=== PATIENT | female | born 1995 | race Two or more races ===

== ENCOUNTER → 2019-09-24 17:06 | Outpatient (BNVA) | payer OTHER, SELFPAY | PROVIDERS: Family Provider Family Medicine; PCP Family Medicine; Visit Provider Nurse Practitioner | DX: N39.0 Urinary tract infection, site not specified (principal); R39.9 Unspecified symptoms and signs involving the genitourinary system; R10.9 Unspecified abdominal pain | CPT/HCPCS: 81003; 81025 ==

== ENCOUNTER 2019-10-04 17:37 | Emergency (ER) | payer OTHER, SELFPAY ==
[2019-10-04 17:41] VITALS: BP 147/88; PULSE 107; RESP 18; TEMP 36.4; O2SAT 100; BMI 38.2
[2019-10-04 18:15] VITALS: PULSE 104; RESP 18; O2SAT 100
[2019-10-04 18:29] LABS: Basophils % 0.2 %; Eosinophils # 0.1 10^3/uL (0.0-0.8); Eosinophils % 1.1 %; Hematocrit 42.2 % (37.0-47.0); Hemoglobin 13.5 g/dL (11.5-15.3); Lymphocytes # 2.2 10^3/uL (0.8-4.8); Lymphocytes % 24.7 %; Mean Corpuscular Hemoglobin 27.6 pg (28.0-34.0); Mean Corpuscular Volume 86.1 fL (81-99); Mean Platelet Volume 11.3 fL (7.4-10.4); Monocytes # 0.6 10^3/uL (0.2-0.9); Neutrophils % 66.7 %; Nucleated Red Blood Cells % 0 %; Platelet Count 276 10^3/cmm (130-400)
--- NOTE | 2019-10-04 18:29 | XRR_ITS ---
PROCEDURE INFORMATION: Exam: XR Left Ankle Exam date and time: 10/04/2019 7:13 PM Age: 24 years old Clinical indication: Injury or trauma; Fall; Initial encounter; Sprain or strain; Ankle; Left TECHNIQUE: Imaging protocol: XR Left ankle. Views: 3 or more views. COMPARISON: No relevant prior studies available. FINDINGS: Bones/joints: Normal. Soft tissues: Lateral soft tissue swelling. XR/XR ankle LT min 3V* [id number] IMPRESSION: No fracture or dislocation.
--- NOTE | 2019-10-04 18:29 | ECG_ITS ---
Measurements Intervals [place] Rate: 90 P: 32 WV: 153 QRS: 11 QRSD: 99 T: -9 QT: 344 QTc: 423 SINUS RHYTHM WITH MARKED SINUS ARRHYTHMIA POSSIBLE LEFT VENTRICULAR HYPERTROPHY [VOLTAGE CRITERIA PLUS LAE OR QRS WIDENING] No previous ECG available for comparison Electronically Signed On 10-04-2019 18:47:15 CDT by Aubrie Uriarte M.D. [email or web address]
--- NOTE | 2019-10-04 18:31 | USR_ITS ---
PROCEDURE INFORMATION: Exam: US First Trimester, Transabdominal and US , Transvaginal Exam date and time: 10/04/2019 8:05 PM Age: 24 years old Clinical indication: Injury or trauma; Fall; Initial encounter; Abrasion; Lower; Injury date: 10-04-2019 both knees and ankle; Injury details: PT passed out and fell down stairs into gravel; ; Prior surgery; Surgery date: 6+ months; Surgery type: Ectopic resolved and removal of RT tube; Patient HX: History of ectopic; Additional info: Syncope, HX of ectopic TECHNIQUE: Imaging protocol: Real-time transabdominal obstetrical ultrasound of the maternal pelvis and a first trimester , less than 14 weeks 0 days, with image documentation. Transvaginal imaging was used for better evaluation of the fetus and adnexa. COMPARISON: US pelvic with transvaginal 07/08/2018 3:54 PM FINDINGS: GESTATION: Gestation: 7 mm oval cyst in the fundal endometrium is most likely an early gestational sac. No pole or heart tones visualized. No yolk sac visualized. MATERNAL: Uterus: The uterus measures 9.1 x 4.7 x 5.5 cm. Cervix: Unremarkable. Right adnexa: The right ovary measures 2.5 x 2.2 x 1.9 cm with normal blood flow. Left adnexa: The left ovary measures 2.7 x 2.1 x 3.3 cm with normal blood flow and a 1.7 cm follicle. Intraperitoneal: No free fluid. US/US OB <=14 wk fetus w transvag IMPRESSION: 1. 7 mm oval cystic structure in the uterine fundus is most likely an early gestation. Viability follow-up ultrasound in 14 or greater days is recommended.
[2019-10-04 18:34] VITALS: PULSE 96; RESP 16
--- NOTE | 2019-10-04 18:35 | ED_ITS ---
HPI - Syncope General: Chief Complaint: Syncope Stated Complaint: syncope, fall Time Seen by Provider: 10/04/19 18:20 History of Present Illness: HPI narrative: She states she has had episodes of syncope throughout this she is sure that with Dr. Bolton and he says is related to her she said she had an episode today where she fell down the stairs and hurt her left ankle. All test that she has had done she said have been negative. He said she cannot predict when this is going to happen it just can happen MD complaint: loss of consciousness Onset (ago): hour(s) Prodromal symptoms: none Witnessed: No Context: other (Going downstairs) Injuries sustained associated with event: LLE (Ankle) Associated symptoms: Reports no associated symptoms; Deny abdominal pain, chest pain, fever(s), headache(s) or nausea History: previous syncopal episode (Multiple) Review of Systems Const: Denies: fever, chills or body aches Eyes: Denies: change in vision or blurry vision ENMT: Denies: throat pain or nasal congestion Card: Reports: syncope (Multiple times her last 2 to 3 months); Denies: chest pain or shortness of breath on exertion Resp: Denies: shortness of breath, productive cough or non-productive cough GI: Denies: abdominal pain, nausea or vomiting Musc: Reports: extremity pain and joint pain (Left ankle) Skin/Breast: Denies: rash Neuro: Reports: dizziness; Denies: headache Psych: Denies: anxiety or depression Anand/Lymph: Denies: easy bruising PFSH ED PFSH: Surgical History (Updated 08/24/19 @ 02:18 by Hayley Horvath RN) History of salpingectomy Hx of left knee surgery Hx of wisdom tooth extraction Family History (Updated 08/02/19 @ 11:21 by Destinee Kaiser MA) Grandfather Cancer Grandmother Cancer Hypercholesteremia Mother Diabetes Hypertension Hypercholesteremia Denies family history of CAD (coronary artery disease) Clotting disorder Dementia Hyperlipidemia Psychiatric illness Chronic kidney disease (CKD) Suicide Anesthesia complication Bleeding disorder Family history of premature coronary artery disease Lung disease Stroke Social History Smoking and tobacco status: never smoked Second hand smoke exposure: No Smoking risk assessment/counseling performed?: No Alcohol intake: never Desire information about alcohol rehabilitation?: No Counseling given: No Desire information about substance/drug rehabilitation?: No Counseling given: No Female Reproductive History: Date of last menstrual period: 09/03/19 Physical Exam Const: COMMON NORMALS: no apparent distress, average body habitus and oriented x3 HENMT: COMMON NORMALS: normocephalic HEAD & SCALP: normal to inspection and normocephalic FACE & SINUS: normal facial exam Eye: COMMON NORMALS: conjunctivae normal GENERAL EYE: normal appearance of both eyes CONJUNCTIVA: Yes conjunctivae normal Neck/C-Spine: COMMON NORMALS: no JVD Chest: COMMONS NORMALS: inspection of chest normal Resp: COMMON NORMALS: normal respiratory effort and clear to auscultation bilaterally AUSCULTATION: clear to auscultation bilaterally Cardio: COMMON NORMALS: no JVD, regular rate and regular rhythm RATE: regular rate RHYTHM: regular rhythm GI: COMMON NORMALS: normal to inspection, nondistended, normoactive bowel sounds Extremity: COMMON NORMALS: normal to inspection and full ROM LEFT LOWER EXTREMITY: Yes ankle joint (Tender with mild swelling no bruising has good range of motion) Neuro: COMMON NORMALS: oriented x3 Course Vital Signs: Vital signs: Vital Signs Temperature 97.6 F 10/04/19 17:41 Pulse Rate 90 10/04/19 18:51 Respiratory Rate 16 10/04/19 18:34 Blood Pressure 120/87 10/04/19 18:51 Pulse Oximetry 100 10/04/19 18:15 MDM - Syncope MDM Narrative: Medical decision making narrative: Esteban case with Dr. Peres Lab Data: Labs: Lab Results 10/04/19 10/04/19 10/04/19 Range/Units 18:04 18:04 18:04 WBC 9.0 (4.0-10.0) 10^3/ uL RBC 4.90 (4.1-5.3) 10^6/u L Hgb 13.5 (11.5-15.3) g/dL Hct 42.2 (37.0-47.0) % MCV 86.1 (81-99) fL MCH 27.6 L (28.0-34.0) pg MCHC 32.0 (30.0-36.0) g/dL RDW 13.0 (12.1-15.1) % Plt Count 276 (130-400) 10^3/c mm MPV 11.3 H (7.4-10.4) fL Neut % (Auto) 66.7 % Lymph % (Auto) 24.7 % [place] % (Auto) 7.0 % Eos % (Auto) 1.1 % Baso % (Auto) 0.2 % Neut # (Auto) 6.0 (1.8-7.7) 10^3/u L Lymph # (Auto) 2.2 (0.8-4.8) 10^3/u L [place] # (Auto) 0.6 (0.2-0.9) 10^3/u L Eos # (Auto) 0.1 (0.0-0.8) 10^3/u L Baso # (Auto) 0.0 (0.0-0.1) 10^3/u L Nucleated RBC % (a uto) 0 % Nucleated RBCs # 0.0 /100WBC Sodium 138 (136-145) mmol/L Potassium 3.7 (3.5-5.1) mmol/L Chloride 101 (98-107) mmol/L Carbon Dioxide 25 (22-29) mmol/L Anion Gap 15.7 (5-19) BUN 10 (6-20) mg/dL Creatinine 0.8 (0.5-0.9) mg/dL GFR Calculation 87.4 L (90-130) mL/min Glucose 99 (65-115) mg/dL Calculated Osmolal ity 282 L (285-295) mOsm/k g Calcium 9.7 (8.5-10.5) mg/dL Total Bilirubin 0.6 (0.15-1.2) mg/dL AST 22 (0-32) U/L ALT 30 (0-33) U/L Alkaline Phosphata se 59 (35-105) IU/L Total Protein 7.5 (6.6-8.7) g/dL Albumin 4.4 (3.5-5.2) g/dL Globulin 3.1 (1.3-4.6) g/dL Ser , Narciso i-Qnt 2542.00 mIU/mL Urine Color (Yellow) Urine Appearance (CLEAR) Urine pH (5-7) Ur Specific Gravit y (1.005-1.030) Urine Protein (Negative) Urine Glucose (UA) (Normal) Urine Ketones (Negative) Urine Blood (Negative) Urine Nitrate (Negative) Urine Bilirubin (NEGATIVE) Urine Urobilinogen (Negative) mg/dL Ur Leukocyte Scarlett ase (Negative) Urine RBC (0-2) /hpf Urine WBC (0-5) /hpf Ur Squamous Epith Cells (0-5) Urine Bacteria (NONE) Urine Mucus 10/04/19 Range/Units 18:26 WBC (4.0-10.0) 10^3/ uL RBC (4.1-5.3) 10^6/u L Hgb (11.5-15.3) g/dL Hct (37.0-47.0) % MCV (81-99) fL MCH (28.0-34.0) pg MCHC (30.0-36.0) g/dL RDW (12.1-15.1) % Plt Count (130-400) 10^3/c mm MPV (7.4-10.4) fL Neut % (Auto) % Lymph % (Auto) % [place] % (Auto) % Eos % (Auto) % Baso % (Auto) % Neut # (Auto) (1.8-7.7) 10^3/u L Lymph # (Auto) (0.8-4.8) 10^3/u L [place] # (Auto) (0.2-0.9) 10^3/u L Eos # (Auto) (0.0-0.8) 10^3/u L Baso # (Auto) (0.0-0.1) 10^3/u L Nucleated RBC % (a uto) % Nucleated RBCs # /100WBC Sodium (136-145) mmol/L Potassium (3.5-5.1) mmol/L Chloride (98-107) mmol/L Carbon Dioxide (22-29) mmol/L Anion Gap (5-19) BUN (6-20) mg/dL Creatinine (0.5-0.9) mg/dL GFR Calculation (90-130) mL/min Glucose (65-115) mg/dL Calculated Osmolal ity (285-295) mOsm/k g Calcium (8.5-10.5) mg/dL Total Bilirubin (0.15-1.2) mg/dL AST (0-32) U/L ALT (0-33) U/L Alkaline Phosphata se (35-105) IU/L Total Protein (6.6-8.7) g/dL Albumin (3.5-5.2) g/dL Globulin (1.3-4.6) g/dL Ser , Narciso i-Qnt mIU/mL Urine Color Yellow (Yellow) Urine Appearance Sl hazy (CLEAR) Urine pH 5 (5-7) Ur Specific Gravit y 1.020 (1.005-1.030) Urine Protein Neg (Negative) Urine Glucose (UA) Norm (Normal) Urine Ketones Negative (Negative) Urine Blood Neg (Negative) Urine Nitrate Negative (Negative) Urine Bilirubin Neg (NEGATIVE) Urine Urobilinogen Norm (Negative) mg/dL Ur Leukocyte Scarlett ase Negative (Negative) Urine RBC 0-4 H (0-2) /hpf Urine WBC 0-4 H (0-5) /hpf Ur Squamous Epith Cells 5-10 H (0-5) Urine Bacteria 1+ H (NONE) Urine Mucus 1+ EKG Data^: EKG 1: EKG interpretation date: 10/04/19 Interpretation: Normal sinus rhythm with left ventricular hypertrophy Discharge Plan Discharge Patient Disposition: Home, Self-Care Clinical Impression: Atypical syncope Sprain of ankle Qualifiers: Encounter type: initial encounter Involved ligament of ankle: posterior talo fibular ligament Laterality: left Qualified Code(s): S93.492A - Sprain of other ligament of left ankle, initial encounter Condition: Stable Prescriptions: No Action 28-800 mg-mcg Tablet 1 tab PO DAILY RF: 0 Discharge Orders: Discharge Order (Routine); Ordered 10/04/19 Ordered By: Isak Mccormick Referrals: Gabriella Friend DO [Primary Care Provider] - Discharge Diet: Advance as tolerated Discharge Activity: Increase activity as tolerated Patient Instructions: Dehydration (ED), Ankle Sprain (ED) Activity Restrictions/Additional Instructions: Follow-up with medical provider as directed. Return to the ER or your medical provider if condition worsens. Please read and understand discharge instructions. If any questions ask please. Follow with up with Dr. Bolton as scheduled off work next 2 days Stand Alone Forms: Work/School Release Coding Level of Care Code ED Welcome [place] Agent for Chg Fwd Exam Comprehensive
[2019-10-04 18:40] LABS: Alanine Aminotransferase 30 U/L (0-33); Albumin Level 4.4 g/dL (3.5-5.2); Alkaline Phosphatase 59 IU/L (35-105); Anion Gap 15.7 (5-19); Aspartate Amino Transferase 22 U/L (0-32); Blood Urea Nitrogen 10 mg/dL (6-20); Calcium 9.7 mg/dL (8.5-10.5); Carbon Dioxide 25 mmol/L (22-29); Chloride 101 mmol/L (98-107); Globulin 3.1 g/dL (1.3-4.6); Glomerular Filtration Rate 87.4 mL/min (90-130); Glucose 99 mg/dL (65-115); Osmolality Calculated 282 mOsm/kg (285-295); Potassium 3.7 mmol/L (3.5-5.1); Sodium 138 mmol/L (136-145); Total Bilirubin 0.6 mg/dL (0.15-1.2); Total Protein 7.5 g/dL (6.6-8.7)
[2019-10-04 18:51] VITALS: BP 120/87; BP 126/107; BP 145/90; PULSE 103; PULSE 110; PULSE 90
[2019-10-04] MEDS: sodium chloride 0.9% 1,000 ML 999 ML IV (18:55)
[2019-10-04] MEDS: ondansetron 2 mg/ML SDV 2 mL 4 MG IVP (19:46)
[2019-10-04 19:58] LABS: Add Urine Microscopic? YES; Bacteria Urine 1+; Bilirubin Urine Neg (NEGATIVE); Blood Urine Neg (Negative); Glucose Urine UA Norm (Normal); Ketones Urine Negative (Negative); Leukocyte Esterase Urine Negative (Negative); Mucus Urine 1+; Nitrate Urine Negative (Negative); Protein Urine Neg (Negative); RBC Urine 0-4 /hpf (0-2); Urine Appearance SL Hazy (CLEAR); Urine Color Yellow (Yellow); Urobilinogen Urine Norm (Negative); WBC Urine 0-4 /hpf (0-5); pH Urine 5 (5-7)
== END 2019-10-04 20:29 | disposition home or self-care (01) ==
PROVIDERS: Family Medicine; Emergency Provider Nurse Practitioner Family; Family Provider Family Medicine; PCP Family Medicine
DX: O9A.211 Injury, poisoning and certain other consequences of external causes complicating pregnancy, first trimester (principal); S93.409A Sprain of unspecified ligament of unspecified ankle, initial encounter; O26.891 Other specified pregnancy related conditions, first trimester; R55 Syncope and collapse; W10.9XXA Fall (on) (from) unspecified stairs and steps, initial encounter
CPT/HCPCS: 12345; 73610; 76801; 76817; 80053; 81001; 81025; 84702; 85025; 93005; 96361; 96374; 96375; 99283; 99284; J2405; J7030

== ENCOUNTER → 2019-10-31 13:20 | Outpatient (BNVA) | payer OTHER, SELFPAY | PROVIDERS: Family Provider Family Medicine; PCP Family Medicine; Visit Provider Nurse Practitioner Women's Health | DX: O13.1 Gestational [pregnancy-induced] hypertension without significant proteinuria, first trimester (principal); O34.81 Maternal care for other abnormalities of pelvic organs, first trimester; N83.11 Corpus luteum cyst of right ovary; O99.211 Obesity complicating pregnancy, first trimester; Z3A.08 8 weeks gestation of pregnancy | CPT/HCPCS: 76801 ==

== ENCOUNTER → 2019-11-14 11:12 | Outpatient (BNVA) | payer OTHER, SELFPAY | PROVIDERS: Family Provider Family Medicine; PCP Family Medicine; Visit Provider Obstetrics & Gynecology | DX: Z34.90 Encounter for supervision of normal pregnancy, unspecified, unspecified trimester (principal); O09.899 Supervision of other high risk pregnancies, unspecified trimester; O21.9 Vomiting of pregnancy, unspecified | CPT/HCPCS: 80053; 80307; 82950; 84315; 85027; 86592; 86762; 86803; 86850; 86900; 87806 ==

== ENCOUNTER → 2019-11-19 12:06 | Outpatient (BNVA) | payer OTHER, MEDICAID, SELFPAY | PROVIDERS: Family Provider Family Medicine; PCP Family Medicine; Visit Provider Obstetrics & Gynecology | DX: O09.891 Supervision of other high risk pregnancies, first trimester | CPT/HCPCS: 80053; 80307; 82950; 85027; 86592; 86762; 86803; 86850; 86900; 87340; 87806 ==

== ENCOUNTER → 2019-11-28 12:52 | Outpatient (BNVA) | payer OTHER, SELFPAY | PROVIDERS: Family Provider Family Medicine; PCP Family Medicine; Visit Provider Obstetrics & Gynecology | DX: Z34.90 Encounter for supervision of normal pregnancy, unspecified, unspecified trimester (principal) | CPT/HCPCS: 84315; 87491; 87591 ==

== ENCOUNTER 2020-01-03 20:55 | Emergency (ER) | payer OTHER, MEDICAID, SELFPAY ==
[2020-01-03 21:07] VITALS: BP 129/84; PULSE 112; RESP 20; TEMP 36.6; O2SAT 99; BMI 42.3
[2020-01-03 21:47] LABS: Basophils % 0.2 %; Eosinophils % 0.2 %; Hematocrit 42.1 % (37.0-47.0); Hemoglobin 13.5 g/dL (11.5-15.3); Lymphocytes # 0.8 10^3/uL (0.8-4.8); Lymphocytes % 6.2 %; Mean Corpuscular HGB Conc 32.1 g/dL (30.0-36.0); Mean Corpuscular Volume 87.3 fL (81-99); Mean Platelet Volume 11.7 fL (7.4-10.4); Monocytes # 0.5 10^3/uL (0.2-0.9); Monocytes % 3.7 %; Neutrophils # 10.9 10^3/uL (1.8-7.7); Neutrophils % 89.5 %; Nucleated Red Blood Cells % 0 %; Platelet Count 219 10^3/cmm (130-400); Red Blood Count 4.82 10^6/uL (4.1-5.3); Red Cell Distribution Width 14.5 % (12.1-15.1); White Blood Count 12.2 10^3/uL (4.0-10.0)
[2020-01-03 22:06] LABS: Alanine Aminotransferase 84 U/L (0-33); Albumin Level 3.8 g/dL (3.5-5.2); Alkaline Phosphatase 61 IU/L (35-105); Aspartate Amino Transferase 59 U/L (0-32); Blood Urea Nitrogen 8 mg/dL (6-20); Calcium 9.1 mg/dL (8.5-10.5); Carbon Dioxide 22 mmol/L (22-29); Chloride 99 mmol/L (98-107); Creatinine Clr Calc Pharmacy 169.2605; Globulin 3.5 g/dL (1.3-4.6); Glomerular Filtration Rate 121.8 mL/min (90-130); Glucose 97 mg/dL (65-115); Osmolality Calculated 276 mOsm/kg (285-295); Sodium 135 mmol/L (136-145); Total Bilirubin 1.1 mg/dL (0.15-1.2); Total Protein 7.3 g/dL (6.6-8.7)
[2020-01-04 00:52] VITALS: BP 141/91; PULSE 108; RESP 18; TEMP 36.7; O2SAT 98
[2020-01-04 01:22] LABS: Add Urine Microscopic? YES; Bacteria Urine 1+; Bilirubin Urine 1+ (NEGATIVE); Blood Urine Neg (Negative); Glucose Urine UA Norm (Normal); Ketones Urine 2+ (Negative); Leukocyte Esterase Urine Negative (Negative); Mucus Urine 1+; Nitrate Urine Negative (Negative); Protein Urine Neg (Negative); RBC Urine 0-4 /hpf (0-2); Urine Appearance Cloudy (CLEAR); Urine Color Yellow (Yellow); Urobilinogen Urine Norm (Negative); WBC Urine 0-4 /hpf (0-5); pH Urine 5 (5-7)
--- NOTE | 2020-01-04 01:43 | W.ED.NAVMDI ---
HPI - Nausea/Vomiting/Diarrhea General: Chief complaint: Nausea/Vomiting/Diarrhea Stated complaint: DIARRHEA/ 17 WEEKS Time Seen by Provider: 01/04/20 00:40 Source: patient Mode of arrival: ambulatory Limitations: no limitations History of Present Illness: HPI Narrative: Patient is a nice 24-year-old female who presents to ED today with a complaint of nausea, vomiting, and abdominal pain beginning around 6 AM this morning. She does tell me she ate [employer] last night for dinner. She has had approximately 3-4 episodes of nonbloody vomit and reports approximately 15 watery nonbloody diarrhea stools. She complains of some mild upper abdominal cramping. She has not been running fevers. Patient is currently 17 weeks . They just had an ultrasound yesterday which was normal. Patient is continuing to feel movement. She has no lower abdominal pain/cramping, vaginal bleeding, vaginal discharge. MD elicited complaint: nausea, vomiting, diarrhea and abdominal pain Onset (ago): hour(s) Description of vomiting: watery Description of diarrhea: watery Associated nausea: Yes Associated abdominal pain: Yes Location of pain: Epigastric, LUQ and RUQ Exacerbating factors: eating Relieving factors: other (promethazine) Associated symtoms: Reports nausea; Denies chest pain, dysuria or headache(s) Review of Systems Const: Denies: fever(s), chills or body aches Card: Denies: chest pain Resp: Denies: dyspnea GI: Reports: abdominal pain, nausea, vomiting and diarrhea; Denies: pain on defecation, hematochezia, melena or white/light colored stool : Denies: flank pain, difficulty voiding, dysuria, urinary frequency, urinary urgency, genital lesions, genital pruritis, vaginal bleeding, vaginal discharge or pelvic pain Musc: Denies: neck pain or back pain Skin/Breast: Denies: rash Neuro: Denies: headache(s), numbness in extremities, weakness in extremities or sensory changes [facility] ED PFSH: Medical History (Updated 01/04/20 @ 02:48 by SAÚL Rogers) Ectopic (~10/2016) Bleeding right tubal . History of gestational hypertension Gestational hypertension in first . Obese Surgical History History of salpingectomy (11/09/16) Laparoscopic right salpingectomy for treatment of ectopic . Performed by Dr. Bolton at [facility] in [place], [place]. 1300 mL of blood and clot evacuated Hx of left knee surgery (10/29/17) reconstruction-Demetrius Hx of wisdom tooth extraction (~2008) Family History Grandfather Colon cancer Maternal great grandfather Grandmother Hypercholesteremia PGM Breast cancer Paternal grandmother and paternal great grandmother Mother Diabetes Hypertension Hypercholesteremia Social History (Updated 12/25/19 @ 13:25 by Sonya Zuñiga APN, CHARLENE) Smoking and tobacco status: never smoked Alcohol intake: never Female Reproductive History: Date of last menstrual period: 09/03/19 Physical Exam Const: COMMON NORMALS: no acute distress, patient oriented x3, no limitations and alert Resp: COMMON NORMALS: normal respiratory effort and clear to auscultation bilaterally AUSCULTATION: clear to auscultation bilaterally Cardio: COMMON NORMALS: regular rate and regular rhythm RATE: regular rate RHYTHM: regular rhythm GI: COMMON NORMALS: Normal to inspection, nondistended, normoactive bowel sounds present, Soft to palpation, No hepatosplenomegaly present and no masses INSPECTION: Yes gravid abdomen PALPATION: Yes Soft to palpation, Yes Tenderness to palpation present (GI) (mild tenderness to upper abdomen; RUQ) and Yes No hepatosplenomegaly present Neuro: COMMON NORMALS: patient oriented x3 SENSORIUM/ORIENTATION: Yes alert Course Vital Signs: Vital signs: Vital Signs Temperature 98.1 F 01/04/20 00:52 Pulse Rate 76 01/04/20 02:00 Respiratory Rate 16 01/04/20 02:00 Blood Pressure 126/73 01/04/20 02:00 Pulse Oximetry 96 01/04/20 02:00 MDM - Nausea/Vomiting/Diarrhea MDM Narrative: Medical decision making narrative: History is consistent with a gastroenteritis however based on patient's physical exam of right upper quadrant tenderness along with her very mildly elevated LFTs I did elect to order a gallbladder ultrasound. This study was normal. Recommend she follow-up with primary care early next week for reevaluation. Recommend she have liver enzymes rechecked in a week-most likely transiently elevated from the gastroenteritis. Return to ED precautions given regarding the weekend. She may continue to use her promethazine for the nausea and vomiting. Lab Data: Labs: Lab Results 01/03/20 01/03/20 01/03/20 Range/Units 21:37 21:37 21:37 WBC 12.2 H (4.0-10.0) 10^3/ uL RBC 4.82 (4.1-5.3) 10^6/u L Hgb 13.5 (11.5-15.3) g/dL Hct 42.1 (37.0-47.0) % MCV 87.3 (81-99) fL MCH 28.0 (28.0-34.0) pg MCHC 32.1 (30.0-36.0) g/dL RDW 14.5 (12.1-15.1) % Plt Count 219 (130-400) 10^3/c mm MPV 11.7 H (7.4-10.4) fL Neut % (Auto) 89.5 % Lymph % (Auto) 6.2 % [place] % (Auto) 3.7 % Eos % (Auto) 0.2 % Baso % (Auto) 0.2 % Neut # (Auto) 10.9 H (1.8-7.7) 10^3/u L Lymph # (Auto) 0.8 (0.8-4.8) 10^3/u L [place] # (Auto) 0.5 (0.2-0.9) 10^3/u L Eos # (Auto) 0.0 (0.0-0.8) 10^3/u L Baso # (Auto) 0.0 (0.0-0.1) 10^3/u L Nucleated RBC % (a uto) 0 % Nucleated RBCs # 0.0 /100WBC Sodium 135 L (136-145) mmol/L Potassium 4.0 (3.5-5.1) mmol/L Chloride 99 (98-107) mmol/L Carbon Dioxide 22 (22-29) mmol/L Anion Gap 18.0 (5-19) BUN 8 (6-20) mg/dL Creatinine 0.6 (0.5-0.9) mg/dL GFR Calculation 121.8 (90-130) mL/min Glucose 97 (65-115) mg/dL Calculated Osmolal ity 276 L (285-295) mOsm/k g Calcium 9.1 (8.5-10.5) mg/dL Total Bilirubin 1.1 (0.15-1.2) mg/dL AST 59 H (0-32) U/L ALT 84 H (0-33) U/L Alkaline Phosphata se 61 (35-105) IU/L Total Protein 7.3 (6.6-8.7) g/dL Albumin 3.8 (3.5-5.2) g/dL Globulin 3.5 (1.3-4.6) g/dL Ser , Narciso i-Qnt 89118.00 mIU/mL Urine Color (Yellow) Urine Appearance (CLEAR) Urine pH (5-7) Ur Specific Gravit y (1.005-1.030) Urine Protein (Negative) Urine Glucose (UA) (Normal) Urine Ketones (Negative) Urine Blood (Negative) Urine Nitrate (Negative) Urine Bilirubin (NEGATIVE) Urine Urobilinogen (Negative) mg/dL Ur Leukocyte Scarlett ase (Negative) Urine RBC (0-2) /hpf Urine WBC (0-5) /hpf Ur Squamous Epith Cells (0-5) Urine Bacteria (NONE) Urine Mucus 01/04/20 Range/Units 01:04 WBC (4.0-10.0) 10^3/ uL RBC (4.1-5.3) 10^6/u L Hgb (11.5-15.3) g/dL Hct (37.0-47.0) % MCV (81-99) fL MCH (28.0-34.0) pg MCHC (30.0-36.0) g/dL RDW (12.1-15.1) % Plt Count (130-400) 10^3/c mm MPV (7.4-10.4) fL Neut % (Auto) % Lymph % (Auto) % [place] % (Auto) % Eos % (Auto) % Baso % (Auto) % Neut # (Auto) (1.8-7.7) 10^3/u L Lymph # (Auto) (0.8-4.8) 10^3/u L [place] # (Auto) (0.2-0.9) 10^3/u L Eos # (Auto) (0.0-0.8) 10^3/u L Baso # (Auto) (0.0-0.1) 10^3/u L Nucleated RBC % (a uto) % Nucleated RBCs # /100WBC Sodium (136-145) mmol/L Potassium (3.5-5.1) mmol/L Chloride (98-107) mmol/L Carbon Dioxide (22-29) mmol/L Anion Gap (5-19) BUN (6-20) mg/dL Creatinine (0.5-0.9) mg/dL GFR Calculation (90-130) mL/min Glucose (65-115) mg/dL Calculated Osmolal ity (285-295) mOsm/k g Calcium (8.5-10.5) mg/dL Total Bilirubin (0.15-1.2) mg/dL AST (0-32) U/L ALT (0-33) U/L Alkaline Phosphata se (35-105) IU/L Total Protein (6.6-8.7) g/dL Albumin (3.5-5.2) g/dL Globulin (1.3-4.6) g/dL Ser , Narciso i-Qnt mIU/mL Urine Color Yellow (Yellow) Urine Appearance Cloudy (CLEAR) Urine pH 5 (5-7) Ur Specific Gravit y 1.030 (1.005-1.030) Urine Protein Neg (Negative) Urine Glucose (UA) Norm (Normal) Urine Ketones 2+ H (Negative) Urine Blood Neg (Negative) Urine Nitrate Negative (Negative) Urine Bilirubin 1+ H (NEGATIVE) Urine Urobilinogen Norm (Negative) mg/dL Ur Leukocyte Scarlett ase Negative (Negative) Urine RBC 0-4 H (0-2) /hpf Urine WBC 0-4 H (0-5) /hpf Ur Squamous Epith Cells 5-10 H (0-5) Urine Bacteria 1+ H (NONE) Urine Mucus 1+ Imaging Data^: US gallbladder: My impression: per [facility] tech-negative gallbladder study Discharge Plan Discharge Patient Disposition: Home, Self-Care Clinical Impression: Gastroenteritis, Elevated LFTs Condition: Stable Prescriptions: No Action propranolol 10 mg tablet 10 mg PO BID Qty: 60 RF: 6 promethazine 25 mg tablet 25 mg PO Q6H PRN (Reason: nausea and vomiting) Qty: 60 RF: 2 28-800 mg-mcg Tablet 1 tab PO DAILY RF: 0 Discharge Orders: Discharge Order (Routine); Ordered 01/04/20 Ordered By: Caitlyn Martinez Referrals: Gabriella Friend DO [Family Provider] - Patient Instructions: Gastroenteritis (ED), Food Poisoning (ED) Activity Restrictions/Additional Instructions: Please push fluids as often as possible to prevent further dehydration. You may continue to use your promethazine to help with the nausea/vomiting. Please follow-up with primary care early next week if the vomiting and diarrhea persists. Return to the emergency department for sooner for any worsening abdominal pain, nausea, vomiting, diarrhea, or any other concerns you may have. Recheck liver enzymes in one week. Coding Level of Care Code ED Stove Mechanic for Chg Fwd Exam Expanded Problem Focused
--- NOTE | 2020-01-04 01:44 | USR_ITS ---
PROCEDURE INFORMATION: Exam: US Abdomen Limited, Right Upper Quadrant Exam date and time: 01/04/2020 2:01 AM Age: 24 years old Clinical indication: Abdominal pain; Acute; Additional info: Ruq pain; N/v/d; Mildly elevated lfts TECHNIQUE: Imaging protocol: Real-time ultrasound of the abdomen with image documentation. Examination was focused on the right upper quadrant. COMPARISON: No relevant prior studies available. FINDINGS: Liver: Unremarkable liver, no focal abnormality. Gallbladder: Unremarkable gallbladder. No cholelithiasis. No gallbladder wall thickening or pericholecystic fluid. The gallbladder does not appear abnormally distended at this time. Common bile duct: No biliary dilation, common duct measures 2.7 mm. Pancreas: Visible pancreas unremarkable. Some of the pancreas is obscured by bowel gas. Right kidney: Images of the right kidney show no hydronephrosis. US/US gall bladder [id number] IMPRESSION: 1. No cholelithiasis or biliary tree dilation. 2. Other findings discussed above.
[2020-01-04] MEDS: sodium chloride 0.9% 1,000 ML 999 ML IV (01:45)
[2020-01-04 02:00] VITALS: BP 126/73; PULSE 76; RESP 16; O2SAT 96
--- NOTE | 2020-01-04 02:01 | PC.NURSE ---
RESTING WITH LIGHTS OFF. FLUIDS INFUSING, AT BEDSIDE. NO ACUTE DISTRESS. CONTINUE TO MONITOR
[2020-01-04 03:15] VITALS: BP 126/77; PULSE 103; RESP 16; TEMP 36.8; O2SAT 98
== END 2020-01-04 03:18 | disposition home or self-care (01) ==
PROVIDERS: Family Medicine; Emergency Provider Physician Assistant; Family Provider Family Medicine
DX: O26.892 Other specified pregnancy related conditions, second trimester (principal); Z3A.17 17 weeks gestation of pregnancy; K52.9 Noninfective gastroenteritis and colitis, unspecified; R79.89 Other specified abnormal findings of blood chemistry
CPT/HCPCS: 12345; 76705; 80053; 81001; 84702; 85025; 96360; 99283; J7030

== ENCOUNTER 2020-01-22 12:31 | Outpatient (CLI) | payer MEDICAID, SELFPAY ==
--- NOTE | 2020-01-22 12:45 | US_ITS ---
WS: [id number] ULTRASOUND OB COMPLETE TECHNIQUE: Complete ultrasound. CLINICAL INFORMATION: anatomy scan COMPARISON: None. FINDINGS: Cervix measures 4.4 cm Single interuterine gestation is identified with breech presentation. Placenta is posterior and low-lying Placenta grade 0. Normal amniotic fluid volume. cardiac activity: 138 BPM. AGA: 20w3d RAMOS by ultrasound: 06/07/2020 Estimated weight: 350 g BDP: 4.7 cm = 20w2d HC: 18.4 cm = 20w5d AC: 14.9 cm = 20w1d FEMUR LENGTH: 3.4 cm = 20w4d Anatomic survey: profile not well seen. Anatomic survey is otherwise normal. Normal stomach. Kidneys and bladder are normal. Normal 3 vessel cord. Normal 3 vessel cord insertion. Normal 4 chamber heart. Normal spine. Intracranial contents are normal. Normal posterior fossa and cisterna magna. US/US OB >= 14 weeks fetus [id number] IMPRESSION: 1. Single intrauterine with visualized cardiac activity. AGA 20w3d w ith RAMOS 06/07/2020. 2. Placenta is posterior and low-lying. Recommend interval follow-up. 3. profile not well seen. Recommend additional evaluation 2- 3 weeks. 4. anatomic survey otherwise normal. 5. Normal amniotic fluid volume.
== END 2020-01-22 12:32 | disposition home or self-care (01) ==
PROVIDERS: Family Provider Family Medicine; Visit Provider Obstetrics & Gynecology
DX: Z36.89 Encounter for other specified antenatal screening (principal); Z3A.20 20 weeks gestation of pregnancy
CPT/HCPCS: 76805

== ENCOUNTER → 2020-01-27 10:50 | Outpatient (BNVA) | payer MEDICAID, SELFPAY | PROVIDERS: Family Provider Family Medicine; Visit Provider Obstetrics & Gynecology | DX: O09.892 Supervision of other high risk pregnancies, second trimester (principal); Z3A.20 20 weeks gestation of pregnancy | CPT/HCPCS: 84315; 87491; 87591 ==

== ENCOUNTER → 2020-03-20 10:22 | Outpatient (BNVA) | payer MEDICAID, SELFPAY | PROVIDERS: Family Provider Family Medicine; Visit Provider Nurse Practitioner Women's Health | DX: O09.892 Supervision of other high risk pregnancies, second trimester (principal); Z3A.00 Weeks of gestation of pregnancy not specified | CPT/HCPCS: 82950; 84315; 85027 ==

== ENCOUNTER → 2020-03-26 08:07 | Outpatient (BNVA) | payer MEDICAID, SELFPAY | PROVIDERS: Family Provider Family Medicine; Visit Provider Nurse Practitioner Women's Health | DX: R73.09 Other abnormal glucose (principal) | CPT/HCPCS: 82951; 82952 ==

== ENCOUNTER 2020-04-24 16:08 | Outpatient (CLI) | payer MEDICAID, SELFPAY ==
[2020-04-24 16:15] VITALS: BMI 44.9
[2020-04-24 16:56] VITALS: BP 103/57; PULSE 81
[2020-04-24 17:00] VITALS: RESP 18; TEMP 36.7
--- NOTE | 2020-04-28 19:17 | PM.ACPR ---
NST (Non-Stress Test) NST : 3 Para: 1,011 Due date: 06/09/20 Gestational age (weeks): 34 Indications: Diet-controlled gestational diabetes in third trimester at 34-3/7 weeks gestation. Time: 16:20 Length of test in Minutes: 40 Contractions: None Fetus Fetus 1: Baseline FHR BMP:: 125 Variability: Moderate Accelerations: Present Decelerations: None Reacticity: Reactive Interpretation/Plan Interpretation by: Geo Bolton Comments: Reactive NST. Time Out Is a Time Out required?: No
== END 2020-04-24 17:15 | disposition home or self-care (01) ==
LOC: OPOB 16:40
PROVIDERS: Family Provider Family Medicine; Visit Provider Obstetrics & Gynecology
DX: O24.419 Gestational diabetes mellitus in pregnancy, unspecified control (principal); Z3A.00 Weeks of gestation of pregnancy not specified
CPT/HCPCS: 12345; 59025; 99211

== ENCOUNTER 2020-04-30 09:55 | Outpatient (CLI) | payer MEDICAID, SELFPAY ==
[2020-04-30 10:25] VITALS: BP 118/71; PULSE 98
[2020-04-30 10:35] VITALS: BMI 46.0
[2020-04-30 10:40] VITALS: BP 121/69; PULSE 93
[2020-04-30 10:54] VITALS: BP 121/69; PULSE 93; RESP 16; TEMP 37.1
--- NOTE | 2020-05-02 18:21 | PM.ACPR ---
NST (Non-Stress Test) NST : 3 Para: 1,011 Due date: 06/09/20 Gestational age (weeks): 34 Indications: Diet-controlled gestational diabetes at 34-2/7 weeks gestation Test: NST Time: 10:11 Length of test in Minutes: 39 Contractions: None Fetus Fetus 1: Baseline FHR BMP:: 125 Variability: Moderate Accelerations: Present Decelerations: None Reacticity: Reactive Interpretation/Plan Interpretation by: Geo Bolton Comments: Reactive NST. Time Out Is a Time Out required?: No
== END 2020-04-30 10:55 | disposition home or self-care (01) ==
LOC: OPOB 10:06 → OBGYN 10:07
PROVIDERS: Family Provider Family Medicine; Visit Provider Obstetrics & Gynecology
DX: O24.419 Gestational diabetes mellitus in pregnancy, unspecified control (principal); Z3A.00 Weeks of gestation of pregnancy not specified
CPT/HCPCS: 12345; 59025; 84315

== ENCOUNTER 2020-05-15 11:45 | Outpatient (CLI) | payer MEDICAID, SELFPAY ==
[2020-05-15 12:21] VITALS: BP 127/74; PULSE 96
[2020-05-15 12:28] VITALS: BMI 46.0
[2020-05-15 12:36] VITALS: BP 117/78; PULSE 93
[2020-05-15 12:40] VITALS: RESP 18; TEMP 36.9
[2020-05-15 12:45] VITALS: BP 117/78; PULSE 93; RESP 18; TEMP 36.9
--- NOTE | 2020-05-19 15:16 | PM.ACPR ---
NST (Non-Stress Test) NST : 3 Para: 1,011 Due date: 06/09/20 Gestational age (weeks): 36 Indications: Diet-controlled gestational diabetes in third trimester at 36-3/7 weeks gestation Test: NST Time: 12:06 Length of test in Minutes: 37 Contractions: Irregular Fetus Fetus 1: Baseline FHR BMP:: 130 Variability: Moderate Accelerations: Present Decelerations: None Reacticity: Reactive Interpretation/Plan Interpretation by: susana Comments: Reactive NST with irregular contractions. Time Out Is a Time Out required?: No
== END 2020-05-15 12:45 | disposition home or self-care (01) ==
LOC: OPOB 12:02 → OBGYN 05-18 08:45
PROVIDERS: Family Provider Family Medicine; Visit Provider Obstetrics & Gynecology
DX: O24.419 Gestational diabetes mellitus in pregnancy, unspecified control (principal); Z3A.00 Weeks of gestation of pregnancy not specified
CPT/HCPCS: 12345; 59025; 84315; 87081; 99211

== ENCOUNTER 2020-05-22 12:00 | Outpatient (CLI) | payer MEDICAID, SELFPAY ==
[2020-05-22] VITALS (15 sets, daily range): BP systolic 0–146; BP diastolic 0–100; PULSE 81–104; RESP 18; TEMP 37.1; BMI 46.7
--- NOTE | 2020-05-24 10:21 | PM.ACPR ---
NST (Non-Stress Test) NST : 3 Para: 1,011 Due date: 06/09/20 Gestational age (weeks): 37 Indications: Diet-controlled gestational diabetes complicating in third trimester at 37-3/7 weeks gestation Test: NST Time: 12:13 Length of test in Minutes: 31 Contractions: Every 3 to 5 minutes Fetus Fetus 1: Baseline FHR BMP:: 135 Variability: Moderate Accelerations: Present Decelerations: None Reacticity: Reactive Interpretation/Plan Interpretation by: Geo Bolton Comments: Reactive NST with regular contractions. Patient to be evaluated for possible labor. Time Out Is a Time Out required?: No
== END 2020-05-22 15:45 | disposition home or self-care (01) ==
LOC: OPOB 12:09 → OBGYN 12:10
PROVIDERS: Family Provider Family Medicine; Visit Provider Obstetrics & Gynecology
DX: O24.419 Gestational diabetes mellitus in pregnancy, unspecified control (principal); Z3A.37 37 weeks gestation of pregnancy
CPT/HCPCS: 12345; 59025; 84315; 87491; 87591; 99211

== ENCOUNTER 2020-05-29 15:00 | Outpatient (CLI) | payer MEDICAID, SELFPAY ==
--- NOTE | 2020-05-29 15:00 | PM.ACPR ---
NST (Non-Stress Test) NST : 3 Para: 1,011 Due date: 06/09/20 Gestational age (weeks): 38 Indications: Diet-controlled gestational diabetes in third trimester at 38-3/7 weeks gestation Test: NST Time: 15:06 Length of test in Minutes: 46 Contractions: Occasional Fetus Fetus 1: Baseline FHR BMP:: 135 Variability: Moderate Accelerations: Present Decelerations: None Reacticity: Reactive Interpretation/Plan Interpretation by: Geo Bolton Comments: Reactive NST with occasional contractions. Time Out Is a Time Out required?: No
[2020-05-29 15:07] VITALS: BP 122/65; PULSE 104
[2020-05-29 15:08] VITALS: BP 122/65; PULSE 104; RESP 16; TEMP 36.6
[2020-05-29 15:19] VITALS: BMI 46.7
[2020-05-29 15:29] VITALS: BP 109/64; PULSE 92
[2020-05-29 15:48] VITALS: BP 118/64; PULSE 82
[2020-05-29 15:54] VITALS: BP 118/64; PULSE 82; RESP 16; TEMP 36.6
== END 2020-05-29 15:53 | disposition home or self-care (01) ==
LOC: OPOB 15:02 → OBGYN 15:02
PROVIDERS: Family Provider Family Medicine; Visit Provider Obstetrics & Gynecology
DX: O24.419 Gestational diabetes mellitus in pregnancy, unspecified control (principal); Z3A.00 Weeks of gestation of pregnancy not specified
CPT/HCPCS: 12345; 59025; 84315

== ENCOUNTER → 2020-06-04 15:22 | Outpatient (BNVA) | payer MEDICAID, SELFPAY | PROVIDERS: Family Provider Family Medicine; Visit Provider Obstetrics & Gynecology | DX: Z11.59 Encounter for screening for other viral diseases (principal); O09.893 Supervision of other high risk pregnancies, third trimester | CPT/HCPCS: 87635 ==

== ENCOUNTER 2020-06-05 15:00 | Outpatient (CLI) | payer MEDICAID, SELFPAY ==
[2020-06-05] VITALS (7 sets, daily range): BP systolic 0–165; BP diastolic 0–104; PULSE 102–114; RESP 16; TEMP 36.8; BMI 47.2
--- NOTE | 2020-06-05 15:00 | PM.ACPR ---
NST (Non-Stress Test) NST : 3 Para: 1,011 Due date: 06/09/20 Gestational age (weeks): 39 Indications: Diet-controlled gestational diabetes in third trimester at 39-3/7 weeks gestation Test: NST Time: 15:11 Length of test in Minutes: 57 Contractions: Frequent Fetus Fetus 1: Baseline FHR BMP:: 130 (Baseline shifted from 140 to 130 during NST) Variability: Moderate Accelerations: Present Decelerations: None Reacticity: Reactive Interpretation/Plan Interpretation by: Geo Bolton Comments: Reactive NST. Baseline shift during NST from 140 to 130. Frequent contractions present. Time Out Is a Time Out required?: No
== END 2020-06-05 16:10 | disposition home or self-care (01) ==
LOC: OPOB 15:06 → OBGYN 15:07
PROVIDERS: Family Provider Family Medicine; Visit Provider Obstetrics & Gynecology
DX: O24.410 Gestational diabetes mellitus in pregnancy, diet controlled (principal); Z3A.39 39 weeks gestation of pregnancy
CPT/HCPCS: 12345; 59025; 84315

== ENCOUNTER 2020-06-06 18:50 | Inpatient (IN) | payer MEDICAID, SELFPAY ==
[2020-06-06 19:26] VITALS: BP 139/83; PULSE 107
[2020-06-06] MEDS: miSOPROStol 100 mcg tablet 25 MCG VAGINAL (20:09)
[2020-06-06 20:11] LABS: Basophils % 0.2 %; Eosinophils # 0.1 10^3/uL (0.0-0.8); Eosinophils % 0.5 %; Hematocrit 38.2 % (37.0-47.0); Hemoglobin 11.8 g/dL (11.5-15.3); Lymphocytes # 2.4 10^3/uL (0.8-4.8); Lymphocytes % 21.6 %; Mean Corpuscular HGB Conc 30.9 g/dL (30.0-36.0); Mean Corpuscular Hemoglobin 25.9 pg (28.0-34.0); Mean Corpuscular Volume 83.8 fL (81-99); Mean Platelet Volume 13.2 fL (7.4-10.4); Monocytes # 0.8 10^3/uL (0.2-0.9); Monocytes % 7.2 %; Neutrophils # 7.91 10^3/uL (1.8-7.7); Neutrophils % 69.9 %; Nucleated Red Blood Cells % 0 %; Platelet Count 185 10^3/cmm (130-400); Red Blood Count 4.56 10^6/uL (4.1-5.3); Red Cell Distribution Width 14.2 % (12.1-15.1); White Blood Count 11.3 10^3/uL (4.0-10.0)
[2020-06-06 20:18] VITALS: BP 137/83; PULSE 112
[2020-06-06 20:37] VITALS: BMI 47.2
[2020-06-06 20:48] VITALS: BP 134/78; PULSE 106
[2020-06-06 21:02] VITALS: BP 138/74; PULSE 102
[2020-06-06 22:18] VITALS: BP 132/72; PULSE 91
[2020-06-06 22:32] LABS: Glucose Point of Care 73 mg/dL (70-110)
[2020-06-06 23:30] VITALS: BP 129/76; PULSE 97
[2020-06-07] VITALS (65 sets, daily range): BP systolic 0–162; BP diastolic 0–97; PULSE 60–138; RESP 16–22; TEMP 36.6–36.9; O2SAT 91–99
[2020-06-07] MEDS: lactated ringers 1,000 ML 999 ML IV ×2 (00:49→04:00)
--- NOTE | 2020-06-07 00:58 | P.ANESASSM_ITS ---
Pre-Anesthetic Assessment Pre-Anesthetic Assessment: Height/Weight: Height 1.6 m Weight 121.109 kg Pulse BP 102 H 94/76 06/07/20 00:31 06/07/20 00:31 Preop Diagnosis: labor Proposed Procedure: Epidural Was Beta Belén taken within 24 hours: N/A Last intake: 1300 Last Intake: 13:00 Social: Social History: No alcohol and No tobacco Exam: Pre-Anes Outpt Exam: alert, oriented x 3, clear to auscultation bilaterally and regular rate & rhythm Airway: Submandibular: WNL Cervical ROM: WNL MP: 2 Dentition: Full Pulmonary: Pulmonary: None reported CV/HEM: CV/HEM: HTN ( induced) : : None reported Hepatic: Hepatic: None reported GI: GI: GERD Metabolic: Metabolic: DM (with diet controlled) and Morbid obesity Musc/skel: Musc/skel: None reported Neuropsych: Neuropsych: CALIX Anesthetic Plan: ASA status: 2 Anesthesia: Regional (specify below) (epidural) Risk of > 500 ml blood loss (7ml/kg in children): No Meds/Allergies Current Medications: Current Medications Generic Name Dose Route Start Last Admin Trade Name Freq PRN Reason Stop Dose Admin Lactated Ringer's 1,000 mls @ 999 m ls/hr 06/07/20 00:07 06/07/20 00:49 Lactated Ringers IV 999 mls/hr .Q1H1M PRN Administration See label comment s Misoprostol 25 mcg 06/06/20 19:45 06/06/20 20:09 Misoprostol 100 Mcg Tablet VAGINAL 06/07/20 03:46 25 mcg Q4H CHRISTIN Administration Zolpidem Tartrate 10 mg 06/06/20 22:40 06/06/20 22:53 Zolpidem 10 Mg T ablet PO 10 mg BEDTIME PRN Administration SLEEP PFSH Anesthesia PFSH: Medical History Ectopic (~10/2016) Bleeding right tubal . History of gestational hypertension Gestational hypertension in first . Obese Surgical History History of salpingectomy (11/09/16) Laparoscopic right salpingectomy for treatment of ectopic . Performed by Dr. Bolton at [facility] in [place], [place]. 1300 mL of blood and clot evacuated Hx of left knee surgery (10/29/17) reconstruction-Demetrius Hx of wisdom tooth extraction (~2008) Family History Grandfather Colon cancer Maternal great grandfather Grandmother Hypercholesteremia PGM Breast cancer Paternal grandmother and paternal great grandmother Mother Diabetes Hypertension Hypercholesteremia Social History Smoking and tobacco status: never smoked Alcohol intake: never Other details last substance use: Denies drug use Female Reproductive History: Date of last menstrual period: 09/03/19 : 3 Data Anesthesia CBC & Chem 7: 06/06/20 20:00 Other Labs: Laboratory Results - last 48 hr 06/06/20 06/06/20 20:00 22:06 WBC 11.3 H RBC 4.56 Hgb 11.8 Hct 38.2 MCV 83.8 MCH 25.9 L MCHC 30.9 RDW 14.2 Plt Count 185 MPV 13.2 H Neut % (Auto) 69.9 Lymph % (Auto) 21.6 [place] % (Auto) 7.2 Eos % (Auto) 0.5 Baso % (Auto) 0.2 Neut # (Auto) 7.91 H Lymph # (Auto) 2.4 [place] # (Auto) 0.8 Eos # (Auto) 0.1 Baso # (Auto) 0.0 Nucleated RBC % (auto) 0 Nucleated RBCs # 0.0 POC Glucose 73 Cardiac Studies: No Data to Display
[2020-06-07] MEDS: ondansetron 2 mg/ML SDV 2 mL 4 MG IVP (01:52)
--- NOTE | 2020-06-07 02:01 | ANES.PROC ---
Anesthesia Procedures Procedure/Date: 06/07/20 Epidural: Time Out Performed: Yes Consents Signed: Procedure Consent Consent: requested by attending/covering physician, from patient, risks and benefits reviewed and patient agrees to proceed Lumbar Level: L3-L4 Epidural position: sitting Epidural procedure: sterile prep of area (betadine), 1% lidocaine to numb the area (3ml), 18 g needle, neg for paresthesia, test dose given, 1.5% xylocaine 1:200k epi (5ml), 0.2% Ropivacaine bolus ml (5ml), placed PCEA, no systemic response, sterile dressing applied, L.U.D. no apparent complications and 0.2% Ropiavacaine @ mls/hr (11ml/hr)
[2020-06-07] MEDS: dextrose 5%-lactated ringers 1,000 ML 125 ML IV (04:00)
[2020-06-07] MEDS: oxytocin 30 UNIT/500 ML BAG IV (07:55)
--- NOTE | 2020-06-07 12:39 | P.PCNOB_ITS ---
Delivery Note: Date of delivery: June 07, 2020 Pre-delivery diagnoses: 1. at 39-5/7 weeks gestation 2. Diet-controlled gestational diabetes in third trimester 3. Large for gestational age fetus complicating in third trimester 4. Obesity complicating in third trimester 5. Gastroesophageal reflux complicating in third trimester Post-delivery diagnoses: 1. at 39-5/7 weeks gestation - delivered 2. Diet-controlled gestational diabetes - delivered 3. Large for gestational age fetus - delivered 4. Obesity complicating - delivered 5. Gastroesophageal reflux complicating 6. Viable male infant. Procedure: Spontaneous vaginal delivery Op report anesthesia: Epidural Delivering Physician: Dr. Geo Bolton Estimated blood loss (mL): 300 Pre-Delivery Course: Patient is a 24-year-old female 3, Para 1-0-0-1 with an LMP of 09/03/2019 and an EDC of 06/09/2020 based on LMP and consistent with 8-week ultrasound. She was admitted to the hospital in the evening of 06/06/2024 induction of labor due to gestational diabetes. Her had been complicated by diet- controlled gestational diabetes, large for gestational age fetus, gastroesophageal reflux, and maternal obesity. Patient had Covid testing on 06/04/2020, which was positive. However, patient's had had tested positive for Covid in March and patient had similar symptoms at the time but patient states she was told by the health department that she did not need to be tested, just to continue the quarantine that she was already on. At this point, she is asymptomatic. Following admission, she received 1 dose of Cytotec and proceeded to contract through the night. She became more uncomfortable during the night and had epidural placed. This morning, she was mary jane very irregularly and Pitocin was started. She had spontaneous rupture membranes of clear fluid at 08:48 and was 7 cm dilated at the time. She progressed to complete dilation by 11:38. monitoring was reassuring during the labor course. Blood sugars were followed during labor and were within expected ranges. Delivery: Patient started pushing at 11:49 and delivered at 12:05 as a spontaneous vaginal delivery of an occiput anterior male over an intact perineum under epidural anesthesia. Following delivery of the 's head, no nuchal cords were noted. The right hand was delivering adjacent to the left cheek. The arm was swept out and the rest of the baby then delivered atraumatically with the left shoulder anterior. Infant was placed on the mother's abdomen where it was spontaneously crying and left in the care of the waiting nurses. Cord was clamped. It was cut by the reported father the baby. Cord blood was obtained. Pitocin bolus was started. Placenta delivered intact by simple expression at 12:10. Cervix and vagina were palpated and noted to be intact. The labia were inspected and noted be intact except for superficial abrasions which required no repair. FINDINGS 1. Viable male infant weighing 9 lbs 13-1/2 oz (4460 g) with a length of 22 inches and Apgars of 9 at 1 minute and 9 at 5 minutes. 2. Three-vessel cord with no nuchal cord present. 3. Normal-appearing placenta with an eccentric cord insertion. Post-Delivery Status: Mother and infant were left to recover in satisfactory condition. A&P Assessment and plan (1) Gestational diabetes mellitus, delivered, current hospitalization: Status: Acute (2) Gastroesophageal reflux in in third trimester: Status: Acute (3) Maternal obesity, delivered, current hospitalization: Status: Acute (4) Fetus large for gestational age, delivered, current hospitalization: Status: Acute Coding Level of Care Code Acute Aerodynamics Engineer for Chg Fwd Diagnoses Gestational diabetes mellitus, delivered, current hospitalization O24.429 Gastroesophageal reflux in in third trimester O99.613; K21.9 Maternal obesity, delivered, current hospitalization O99.214 Fetus large for gestational age, delivered, current hospitalization O36.60X0
[2020-06-07] MEDS: docusate sodium 100 mg Capsule PO (18:06)
[2020-06-07] MEDS: ibuprofen 800 mg tablet PO (18:06)
[2020-06-07 19:41] LABS: Glucose Point of Care 90 mg/dL (70-110)
[2020-06-07 19:41] LABS: Glucose Point of Care 85 mg/dL (70-110)
[2020-06-07 19:41] LABS: Glucose Point of Care 98 mg/dL (70-110)
[2020-06-07] MEDS: acetaminophen 325 mg Tablet 650 MG PO (21:10)
[2020-06-08] MEDS: TRAMadol 50 mg Tablet PO (01:12)
[2020-06-08 02:00] VITALS: BP 120/78; PULSE 83; RESP 16
[2020-06-08 05:49] VITALS: BP 126/84; PULSE 101; RESP 16
[2020-06-08 05:53] LABS: Hematocrit 34.7 % (37.0-47.0); Hemoglobin 10.7 g/dL (11.5-15.3); Mean Corpuscular HGB Conc 30.8 g/dL (30.0-36.0); Mean Corpuscular Hemoglobin 26.2 pg (28.0-34.0); Mean Platelet Volume 13.3 fL (7.4-10.4); Platelet Count 164 10^3/cmm (130-400); Red Blood Count 4.08 10^6/uL (4.1-5.3); Red Cell Distribution Width 14.2 % (12.1-15.1); White Blood Count 12.5 10^3/uL (4.0-10.0)
[2020-06-08] MEDS: ibuprofen 800 mg tablet PO ×3 (09:54→22:10)
[2020-06-08] MEDS: prenatal vitamin Capsule 1 CAP PO (09:54)
[2020-06-08] MEDS: docusate sodium 100 mg Capsule PO (09:54)
[2020-06-08 10:00] VITALS: BP 126/72; PULSE 89; RESP 16; TEMP 36.4; O2SAT 99
--- NOTE | 2020-06-08 14:07 | ANE.PACU2 ---
Inpatient post-anesthesia follow up: Airway intact: Yes Vital signs: Temperature 97.5 F Pulse Rate 89 Respiratory Rate 16 Blood Pressure 126/72 Pulse Oximetry 99 Oxygen Delivery Me thod Room Air Oxygen Flow Rate Fraction of Inspir ed Oxygen Hydration adequate: Yes Nausea and vomiting: No Pain level: 2 Mental status: Baseline Additional Comments: No signs of infection at neuraxial site, no numbness/weakness in lower extremities, no headaches, urinating with out ortega
[2020-06-08 15:51] VITALS: BP 112/73; PULSE 68; RESP 16; TEMP 36.6; O2SAT 99
--- NOTE | 2020-06-08 18:09 | PM.PN ---
Subjective Subjective: Interval history: Denies any problems or concerns. States pain has been well controlled. Denies any lightheadedness or dizziness with ambulation. Denies any shortness of breath or chest pains. Denies any nausea or vomiting and is tolerating a regular diet. States bleeding has slowed. Denies problems with urination. She is breast-feeding. Vitals/I&O/Wt Last Vital Signs Temp 97.8 F 06/08/20 15:51 Pulse 68 06/08/20 15:51 Resp 16 06/08/20 15:51 BP 112/73 06/08/20 15:51 Pulse Ox 99 06/08/20 15:51 Weight last 48 hrs Weight 267 lb Physical Exam Const: COMMON NORMALS: no acute distress, average body habitus, alert and well nourished GENERAL APPEARANCE: well developed ORIENTATION/CONSCIOUSNESS: Yes oriented to person, Yes oriented to place and Yes oriented to time Resp: COMMON NORMALS: normal respiratory effort and clear to auscultation bilaterally AUSCULTATION: clear to auscultation bilaterally Cardio: COMMON NORMALS: regular rate, regular rhythm, No gallops present (Cardio), No murmurs present (Cardio) and No rub (Cardio) RATE: regular rate RHYTHM: regular rhythm GI: COMMON NORMALS: Soft to palpation, non-tender, No hepatosplenomegaly present and no masses (Except for nontender uterus) AUSCULTATION: Yes normoactive bowel sounds PALPATION: Yes Soft to palpation, Yes No hepatosplenomegaly present and No Hernia present : EXTERNAL FEMALE EXAM: No Hernia present Extremity: COMMON NORMALS: no calf tenderness NARRATIVE EXTREMITY EXAM: 1+ lower extremity edema bilaterally Neuro: SENSORIUM/ORIENTATION: Yes alert, Yes oriented to person, Yes oriented to place and Yes oriented to time Psych: COMMON NORMALS: normal affect MOOD & AFFECT: Yes euthymic mood Urinary Catheter Management^: Yoder: Cath Placed During This Visit: yes, but has since been removed by the nurse Reason for Continuing Indwelling Catheter: Other Urinary Catheter Date of Insertion: 06/07/20 Urinary Catheter Time of Insertion: 02:00 Date Urinary Catheter Removed: 06/07/20 Time Urinary Catheter Discontinued: 11:55 Data : 06/08/20 05:41 A&P Assessment and plan (1) Gestational diabetes mellitus, delivered, current hospitalization: day 1, status post vaginal delivery Patient is doing well at this time. Continue present management. Plan is for discharge to home tomorrow. Baby is not being released tonight. Discharge instructions were discussed with patient in anticipation of her discharge tomorrow. Status: Acute Attestations Medical Necessity Statement*: day 1, status post vaginal delivery Coding Level of Care Code Acute Bone Plant Supervisor for Chg Fwd Diagnoses Gestational diabetes mellitus, delivered, current hospitalization O24.429
[2020-06-08 22:10] VITALS: BP 123/85; PULSE 79; RESP 16; TEMP 36.8; O2SAT 97
--- NOTE | 2020-06-09 00:57 | PC.NURSE ---
Pt. voiced concern about baby not getting enough to eat and having a difficult time latching onto breast. I spoke with pt. and her at length in regard to breast and formula feeding. Pt. requested formula and for blood glucose to be checked. A bottle of formula and syringe was provided and instructed on how t feed baby. Blood glucose was checked and it was 49. Pt. will feed baby and recheck glucose in 1 hr.
[2020-06-09 05:50] VITALS: BP 118/82; PULSE 90; RESP 18; TEMP 36.7; O2SAT 99
[2020-06-09] MEDS: lanolin oint 7 gm 1 APPLIC TOPICAL (08:39)
[2020-06-09] MEDS: ibuprofen 800 mg tablet PO (08:39)
[2020-06-09] MEDS: prenatal vitamin Capsule 1 CAP PO (08:39)
[2020-06-09 11:05] VITALS: BP 132/96; PULSE 95; RESP 16; TEMP 36.7; O2SAT 98
--- NOTE | 2020-06-09 11:25 | P.DS_ITS ---
Discharge Providers COSMETIC ACCOUNT COORDINATOR Date of Admission: 06/06/20 18:50 Date of Discharge: 06/09/20 Attending Provider at Admission: Geo Bolton MD Attending Provider at Discharge: Geo Bolton MD Diagnoses at Discharge Discharge Diagnosis (1) Gestational diabetes mellitus, delivered, current hospitalization: Status: Acute (2) Fetus large for gestational age, delivered, current hospitalization: Status: Acute (3) Maternal obesity, delivered, current hospitalization: Status: Acute (4) Gastroesophageal reflux in in third trimester: Status: Acute Reason for Visit Reason for Visit: Induction of labor due to gestational diabetes Hospital Course Hospital Course Patient is a 24-year-old female, 3, para 1-0-1-1 with an LMP of 09/03/2019 and an EDC of 06/09/2020 based on LMP and consistent with an 8-week ultrasound, which placed her at 39-4/7 weeks at the time of admission. Patient was admitted to the hospital in the evening of 06/06/2020 for induction of labor for gestational diabetes. Her was complicated by diet- controlled gestational diabetes, large for gestational age fetus, gastroesophageal reflux, and maternal obesity. Patient initially received 1 dose of Cytotec 25 mcg vaginally and proceeded to contract through the night. She had epidural placed. The following morning she was started on Pitocin for induction. She had spontaneous rupture membranes with clear fluid present at 08:48 and was 7 cm dilated. She progressed to complete dilation by 11:38. monitoring was reassuring during the labor course. Blood sugars had been within expected range during the labor. She started pushing at 11:49 and delivered at 12:05 as a spontaneous vaginal delivery of an occiput anterior male over an intact perineum under epidural anesthesia. Baby weighed 9 lbs 13-1/2 oz (4460 g) with a length of 22 inches and Apgars of 9 at 1 minute and 9 at 5 minutes. Following delivery mother and infant both were doing well. Day 1 Patient was doing well. She was tolerating regular diet without nausea or vomiting. Her pain was well controlled with oral medications. She denied any lightheadedness or dizziness with ambulation. She denied any shortness of breath or chest pains. She denied any problems with urination. She was afebrile with stable vital signs. The baby was not being released until the next day. As a result, patient was staying as well with plan for discharge from the hospital tomorrow. day 2 Patient reports doing well. She denies any lightheadedness or dizziness with am bulation. She denies any shortness of breath or chest pains. She reports her pain is been well controlled. She reports tolerating regular diet without nausea or vomiting. She denies problems with urination. She states she has had a bowel movement. She reports that her bleeding has slowed. She is breast- feeding. She would like to be released today. Physical exam: See below Plan Discharge to home. Discharge instructions discussed with patient. Patient to follow-up in the office in approximately 6 weeks. Patient instructed that she does not need to continue checking her sugars at home. She will be having a 2- hour glucose tolerance test when she comes in for her check. Physical Exam Const: COMMON NORMALS: no acute distress, average body habitus, alert and well nourished GENERAL APPEARANCE: well developed ORIENTATION/CONSCIOUSNESS: Yes oriented to person, Yes oriented to place and Yes oriented to time GI: COMMON NORMALS: Soft to palpation, non-tender, No hepatosplenomegaly present and no masses (Except for nontender uterus) AUSCULTATION: Yes normoactive bowel sounds PALPATION: Yes Soft to palpation, Yes No hepatosplenomegaly present and No Hernia present : EXTERNAL FEMALE EXAM: No Hernia present Extremity: COMMON NORMALS: no calf tenderness NARRATIVE EXTREMITY EXAM: 1+ lower extremity edema bilaterally Neuro: SENSORIUM/ORIENTATION: Yes alert, Yes oriented to person, Yes oriented to place and Yes oriented to time Psych: COMMON NORMALS: normal affect MOOD & AFFECT: Yes euthymic mood Urinary Catheter Management^: Yoder: Cath Placed During This Visit: yes, but has since been removed by the nurse Reason for Continuing Indwelling Catheter: Other Urinary Catheter Date of Insertion: 06/07/20 Urinary Catheter Time of Insertion: 02:00 Date Urinary Catheter Removed: 06/07/20 Time Urinary Catheter Discontinued: 11:55 Discharge Data Vitals: Last Vital Signs Temp 98.0 F 06/09/20 05:50 Pulse 90 06/09/20 05:50 Resp 18 06/09/20 05:50 BP 118/82 06/09/20 05:50 Pulse Ox 99 06/09/20 05:50 Discharge Plan Discharge Patient Disposition: Home Condition: Stable Prescriptions: Continued 28-800 mg-mcg Tablet 1 tab PO DAILY RF: 0 Discontinued aspirin [Adult Aspirin Regimen] 81 mg tablet,delayed release (DR/EC) 81 mg PO DAILY RF: 0 famotidine 20 mg tablet 20 mg PO BID 30 Days Qty: 60 RF: 3 (DME) blood-glucose meter [Blood Glucose Monitoring] Kit See Rx Instructions .ROUTE .MEDSUPPLY Qty: 1 RF: 2 metoclopramide HCl [Reglan] 10 mg Tablet 10 mg PO Q6H PRN (Reason: Heartburn) RF: 0 promethazine 25 mg tablet 25 mg PO PRN PRN (Reason: nausea and vomiting) RF: 0 Discharge Orders: Discharge Order (Routine); Ordered 06/09/20 Ordered By: Geo Bolton Referrals: Geo Bolton MD [Physician] - 07/23/20 12:45 pm Discharge Diet: Regular Discharge Activity: Resume usual activity Patient Instructions: Your Baby (GEN), Expression, Collection and Storage of Breastmilk (GEN), How to Hold and Breastfeed Your Baby (GEN), and Nipple Soreness (GEN), Breast Fullness Versus Breast Engorgement (GEN), and Your Diet (GEN), Breast Care for the Breast Feeding Mother (GEN), Vaginal Delivery (DC), Bleeding (GEN), OB Discharge Report, OB Food/Drug Interaction Guide, OB Home Care, Depression Activity Restrictions/Additional Instructions: May take over the counter Tylenol and Ibuprofen as directed for pain Nothing in vagina for 6 weeks Discharge Attestations COSMETIC ACCOUNT COORDINATOR Time Spent in Discharge Care*: less than 30 min Coding Level of Care Code Acute Deck Specialist for Chg Fwd Exam Expanded Problem Focused Diagnoses Gestational diabetes mellitus, delivered, current hospitalization O24.429 Fetus large for gestational age, delivered, current hospitalization O36.60X0 Maternal obesity, delivered, current hospitalization O99.214 Gastroesophageal reflux in in third trimester O99.613; K21.9
== END 2020-06-09 11:30 | disposition home or self-care (01) | DRG 805 ==
PROVIDERS: Admitting Provider Obstetrics & Gynecology; Family Provider Family Medicine; Visit Provider Obstetrics & Gynecology
DX: O98.52 Other viral diseases complicating childbirth (principal); U07.1 COVID-19; Z37.0 Single live birth; O99.214 Obesity complicating childbirth; E66.01 Morbid (severe) obesity due to excess calories; O13.4 Gestational [pregnancy-induced] hypertension without significant proteinuria, complicating childbirth; O36.63X0 Maternal care for excessive fetal growth, third trimester, not applicable or unspecified; O24.420 Gestational diabetes mellitus in childbirth, diet controlled; Z3A.39 39 weeks gestation of pregnancy
CPT/HCPCS: 12345; 36415; 36416; 51702; 59025; 59409; 82962; 85025; 85027; 96375; 98960; 99211; J2405; J2795

== ENCOUNTER → 2020-07-23 08:35 | Outpatient (BNVA) | payer MEDICAID, SELFPAY | PROVIDERS: Family Provider Family Medicine; Visit Provider Obstetrics & Gynecology | DX: O24.429 Gestational diabetes mellitus in childbirth, unspecified control (principal) | CPT/HCPCS: 82947 ==